=== PATIENT | female | born 1985 | race American Indian/Alaskan Native ===

== ENCOUNTER 2019-07-14 22:52 | Emergency (ER) | payer OTHER ==
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
[2019-07-14] MEDS ORDERED: PERCOCET 5/325 PO PRN (23:30)
[2019-07-14] MEDS ORDERED: ATIVAN PO ONE (23:32)
[2019-07-14] MEDS ORDERED: XYLOCAINE 2% INFILTRATI ONE (23:34)
[2019-07-15] MEDS ORDERED: TORADOL IM ONE (00:22)
[2019-07-15] MEDS ORDERED: POLYSPORIN TP ONE (00:22)
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
--- NOTE | 2019-07-15 00:26 | XRay Report ---
LEFT FEMUR ONE VIEW INDICATION / CLINICAL INFORMATION: leg pain COMPARISON: None available. FINDINGS: BONES / JOINT(S): No fracture is seen on one view obtained. The patella is positioned medially. The p atient is rotated which may account for this. No significant arthritis. SOFT TISSUES: No significant abnormality. ADDITIONAL FINDINGS: None. Impression: No fracture is identified on the single view obtained. Patella appears to be positioned medially whic h may be due to patient rotation. If knee injury is a clinical concern, dedicated 4 view knee radiogr aphs are recommended. Signer Name: Darell Le MD Signed: 07/15/2019 12:22 AM Workstation Name: [email or web address]
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
--- NOTE | 2019-07-15 00:28 | XRay Report ---
LEFT TIBIA AND FIBULA 2 VIEWS INDICATION / CLINICAL INFORMATION: leg pain COMPARISON: None available. FINDINGS: BONES / JOINT(S): No acute fracture or subluxation. No significant arthritis. SOFT TISSUES: No significant abnormality. ADDITIONAL FINDINGS: None. Signer Name: Darell Le MD Signed: 07/15/2019 12:23 AM Workstation Name: [id number]
[2019-07-15] MEDS ORDERED: PERCOCET 5/325 PO STA (02:01)
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
--- NOTE | 2019-07-15 02:17 | XRay Report ---
LEFT FOREARM 1 VIEWS INDICATION / CLINICAL INFORMATION: upper extremity pain COMPARISON: None available. FINDINGS: BONES / JOINT(S): No fracture is seen on this single view. No radiopaque foreign bodies are seen asid e from an IV catheter. No significant arthritis. SOFT TISSUES: No significant abnormality. ADDITIONAL FINDINGS: None. Signer Name: Darell Le MD Signed: 07/15/2019 2:13 AM Workstation Name: [id number]
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
[2019-07-15 03:06] VITALS: BP 131/90
== END 2019-07-15 04:00 | disposition home or self-care (01) ==
LOC: ED 22:52
DX: S81.812A Laceration without foreign body, left lower leg, initial encounter (principal); S40.012A Contusion of left shoulder, initial encounter; R10.32 Left lower quadrant pain; M54.2 Cervicalgia; F17.200 Nicotine dependence, unspecified, uncomplicated; Z98.51 Tubal ligation status; Z79.899 Other long term (current) drug therapy; V19.9XXA Pedal cyclist (driver) (passenger) injured in unspecified traffic accident, initial encounter; Y93.89 Activity, other specified; Y92.410 Unspecified street and highway as the place of occurrence of the external cause; Y99.8 Other external cause status
CPT/HCPCS: 12002; 70450; 71045; 72125; 72170; 73030; 73070; 73090; 73551; 73590; 74176; 93005; 93010; 96372; 99285; J1885